=== PATIENT | male | born 1985 | race Caucasian/White ===

== ENCOUNTER 2017-08-03 12:51 | Emergency (ER) | payer SELFPAY ==
[~2017-08-03] VITALS: Ht 177.8 cm; Wt 95.0 kg
[~2017-08-03 12:51] MED LIST: METO10TA PO; PROM25SU8 PO; ZOFR4TAB3 SL
[2017-08-03 12:53] VITALS: BP 134/88; PULSE 88; RESP 12; TEMP 98.4; O2SAT 97
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
== END 2017-08-03 17:55 | disposition home or self-care (01) ==
LOC: NEPK 12:51
DX: S47.2XXA Crushing injury of left shoulder and upper arm, initial encounter (principal); I48.91 Unspecified atrial fibrillation; I10 Essential (primary) hypertension; W23.0XXA Caught, crushed, jammed, or pinched between moving objects, initial encounter
CPT/HCPCS: 73030; 73080; 73200